=== PATIENT | female | born 1985 | race American Indian/Alaskan Native ===

== ENCOUNTER 2017-06-16 14:52 | Emergency (ER) | payer SELFPAY ==
[2017-06-16 15:49] VITALS: BP 111/66
[2017-06-16] MEDS ORDERED: TYLENOL PO ONE (21:06)
[2017-06-16] MEDS ORDERED: PROVENTIL IH ONE (21:06)
[2017-06-16] MEDS ORDERED: DELTASONE PO ONE (21:06)
--- NOTE | 2017-06-16 22:00 | Emergency Department Report ---
- General Chief Complaint: Upper Respiratory Infection Stated Complaint: BODYACHE, BREAST PAIN,CASEY Time Seen by Provider: 06/16/17 21:04 Source: patient Mode of arrival: Ambulatory Limitations: No Limitations - History of Present Illness Initial Comments: Patient is a 31-year-old female who presents for cough fever bodyaches dizziness with headache 3 weeks states family members sick with similar symptoms with influenza 2 weeks ago patient denies nausea vomiting tolerating by mouth intake states intermittent wheezing and shortness of breath at night, symptoms are exacerbated by activity symptoms are relieved by nothing nothing Complaint: fever, cough, sore throat, rhinorrhea, nasal congestion Onset/Timin -: week(s) Severity: moderate Severity scale (0 -10): 4 Quality: aching Consistency: intermittent Improves With: nothing Worsens With: activity Context: sick contacts Associated Symptoms: fever, chills, rhinorrhea, nasal congestion, sore throat, cough, shortness of breath, nausea, ear pain, other (wheezing ). denies: rash, confusion, right sweats, weight loss, epistaxis, hoarseness Treatments Prior to Arrival: none - Related Data Previous Rx's Medication Instructions Recorded Last Taken Type ALBUTEROL Inhaler [ProAir HFA 2 puff IH QID PRN #1 inhalation 06/17/17 Unknown Rx Inhaler] Azithromycin [Zithromax Z-KLEVER] 250 mg PO DAILY #6 tab 06/17/17 Unknown Rx Benzonatate [Tessalon Perles] 100 mg PO Q8HR PRN #30 capsule 06/17/17 Unknown Rx Ibuprofen 800 mg PO TID PRN #30 tablet 06/17/17 Unknown Rx predniSONE [Deltasone] 40 mg PO QDAY #10 tab 06/17/17 Unknown Rx Allergies Allergy/AdvReac Type Severity Reaction Status Date / Time No Known Allergies Allergy Unverified 06/16/17 15:49 ED Review of Systems ROS: Stated complaint: BODYACHE, BREAST PAIN,CASEY Other details as noted in HPI Constitutional: chills, fever Eyes: denies: eye pain, eye discharge, vision change ENT: ear pain, throat pain, congestion. denies: hearing loss, epistaxis Respiratory: cough, shortness of breath, wheezing Cardiovascular: denies: chest pain, palpitations, syncope, paroxysmal nocturnal dyspnea Endocrine: no symptoms reported Gastrointestinal: nausea. denies: abdominal pain, vomiting, diarrhea, constipation, hematemesis, melena, hematochezia Genitourinary: denies: urgency, dysuria, discharge Musculoskeletal: myalgia. denies: back pain, joint swelling, arthralgia Skin: denies: rash, lesions Neurological: denies: headache, weakness, numbness, paresthesias, confusion, abnormal gait, vertigo Psychiatric: denies: anxiety, depression Hematological/Lymphatic: denies: easy bleeding, easy bruising ED Past Medical Hx - Past Medical History Previous Medical History?: No - Surgical History Past Surgical History?: No - Social History Smoking Status: Never Smoker Substance Use Type: None - Medications Home Medications: Home Medications Medication Instructions Recorded Confirmed Last Taken Type ALBUTEROL Inhaler [ProAir HFA 2 puff IH QID PRN #1 inhalation 06/17/17 Unknown Rx Inhaler] Azithromycin [Zithromax Z-KLEVER] 250 mg PO DAILY #6 tab 06/17/17 Unknown Rx Benzonatate [Tessalon Perles] 100 mg PO Q8HR PRN #30 capsule 06/17/17 Unknown Rx Ibuprofen 800 mg PO TID PRN #30 tablet 06/17/17 Unknown Rx predniSONE [Deltasone] 40 mg PO QDAY #10 tab 06/17/17 Unknown Rx ED Physical Exam - General Limitations: No Limitations General appearance: alert, in no apparent distress - Head Head exam: Present: atraumatic, normocephalic - Eye Eye exam: Present: normal appearance, PERRL, EOMI Pupils: Present: normal accommodation - Expanded ENT Exam Expanded TM/Canal exam: Erythema: Right TM, Left TM Mouth exam: Present: tongue normal. Absent: trismus, tongue elevation Throat exam: Positive: tonsillar erythema. Negative: tonsillomegaly, tonsillar exudate, R peritonsillar mass, L peritonsillar mass - Neck Neck exam: Present: normal inspection, full ROM. Absent: tenderness, meningismus, lymphadenopathy, thyromegaly - Respiratory Respiratory exam: Present: normal lung sounds bilaterally, wheezes, chest wall tenderness. Absent: respiratory distress, rales, rhonchi, stridor, accessory muscle use, decreased breath sounds, prolonged expiratory - Cardiovascular Cardiovascular Exam: Present: regular rate, normal rhythm, normal heart sounds. Absent: systolic murmur, diastolic murmur, rubs, gallop - GI/Abdominal GI/Abdominal exam: Present: soft, normal bowel sounds. Absent: distended, tenderness, guarding, rebound, rigid, organomegaly, mass, bruit, pulsatile mass - Rectal Rectal exam: Present: deferred - Extremities Exam Extremities exam: Present: normal inspection, full ROM, normal capillary refill. Absent: tenderness, pedal edema, joint swelling, calf tenderness - Back Exam Back exam: Present: normal inspection, full ROM. Absent: tenderness, CVA tenderness (R), CVA tenderness (L), muscle spasm, paraspinal tenderness, vertebral tenderness, rash noted - Neurological Exam Neurological exam: Present: alert, oriented X3, CN II-XII intact, normal gait, reflexes normal - Psychiatric Psychiatric exam: Present: normal affect, normal mood - Skin Skin exam: Present: warm, dry, intact, normal color. Absent: rash ED Course Vital Signs 06/16/17 15:43 Temperature 98.4 F Pulse Rate 76 Respiratory 20 Rate Blood Pressure 111/66 O2 Sat by Pulse 99 Oximetry ED Medical Decision Making - Lab Data Result diagrams: 06/16/17 22:00 06/16/17 22:00 Laboratory Tests 06/16/17 06/16/17 06/16/17 22:00 22:00 23:40 WBC 8.9 RBC 4.19 Hgb 12.0 Hct 36.6 MCV 87 MCH 29 MCHC 33 RDW 14.6 Plt Count 164 Lymph % (Auto) 42.1 H Atkinson % (Auto) 5.1 Eos % (Auto) 1.9 Baso % (Auto) 0.4 Lymph # 3.7 Atkinson # 0.5 Eos # 0.2 Baso # 0.0 Seg Neutrophils % 50.5 Seg Neutrophils # 4.5 Sodium 137 Potassium 3.5 L Chloride 101.6 Carbon Dioxide 24 Anion Gap 15 BUN 12 Creatinine 0.7 Estimated GFR > 60 BUN/Creatinine Ratio 17 Glucose 127 H Calcium 8.0 L Total Bilirubin 0.20 AST 15 ALT 13 Alkaline Phosphatase 42 Total Protein 6.4 Albumin 3.4 L Albumin/Globulin Ratio 1.1 Urine Color Red Urine Turbidity Clear Urine pH 7.0 Ur Specific [place] 1.016 Urine Protein <15 mg/dl Urine Glucose (UA) Neg Urine Ketones Neg Urine Blood Neg Urine Nitrite Neg Urine Bilirubin Neg Urine Urobilinogen < 2.0 Ur Leukocyte Esterase Sm Urine WBC (Auto) 1.0 Urine RBC (Auto) 2.0 U Epithel Cells (Auto) 62.0 H Urine Mucus Few Urine HCG, Qual Negative - Radiology Data Radiology results: report reviewed, image reviewed normal chest xray no infiltrate no opacities - Medical Decision Making Patient is a 31-year-old female who presents for cough fever bodyaches dizziness with headache 3 weeks states family members sick with similar symptoms with influenza 2 weeks ago patient denies nausea vomiting tolerating by mouth intake states intermittent wheezing and shortness of breath at night, symptoms are exacerbated by activity symptoms are relieved by nothing nothing pt appears nontoxic cough non productive at this time, ent: TM erythema , pain with movement, nose: boggy bilat turbinate erythema edema clear post nasal drip , no sinus pain , pharynx: moderate erythema no exudate no lesions no swelling no stridor uvula midline lungs: mild exp wheezes bilat, plan: albuterol, prednisone, tylenol, CXR, cbc, ua, hcg, cmp, ekg noted as ordered from triage, nsr interp by ed attending, Reassessment: breathing improved , cxr: no infiltrates no opacities, cmp normal cbc: normal, ua: normal, hcg: negative, plan tx for uri bronchitis, follow up with pcp in 2-3 days pt verbalized agreement and understanding of same. Critical care attestation.: If time is entered above; I have spent that time in minutes in the direct care of this critically ill patient, excluding procedure time. ED Disposition Clinical Impression: Bronchitis URI (upper respiratory infection) Qualifiers: URI type: unspecified viral URI Qualified Code(s): J06.9 - Acute upper respiratory infection, unspecified Disposition: DC TO HOME OR SELFCARE Is pt being admited?: No Does the pt Need Aspirin: No Condition: Good Instructions: Chronic Bronchitis (ED) Prescriptions: ALBUTEROL Inhaler [ProAir HFA Inhaler] 2 puff IH QID PRN #1 inhalation PRN Reason: Shortness Of Breath Azithromycin [Zithromax Z-KLEVER] 250 mg PO DAILY #6 tab Benzonatate [Tessalon Perles] 100 mg PO Q8HR PRN #30 capsule PRN Reason: Cough Ibuprofen 800 mg PO TID PRN #30 tablet PRN Reason: pain fever predniSONE [Deltasone] 40 mg PO QDAY #10 tab Forms: Work/School Release Form(ED) Time of Disposition: 01:13
[2017-06-16 22:21] LABS: Basophils % (Auto) 0.4 % (0.0-1.8); Eosinophils # (Auto) 0.2 K/mm3 (0.0-0.4); Eosinophils % (Auto) 1.9 % (0.0-4.3); Hematocrit 36.6 % (30.3-42.9); Lymphocytes # (Auto) 3.7 K/mm3 (1.2-5.4); Lymphocytes % (Auto) 42.1 % (13.4-35.0); Mean Corpuscular HGB Conc 33 % (30-34); Mean Corpuscular Hemoglobin 29 pg (28-32); Mean Corpuscular Volume 87 fl (79-97); Monocytes # (Auto) 0.5 K/mm3 (0.0-0.8); Monocytes % (Auto) 5.1 % (0.0-7.3); Platelet Count 164 K/mm3 (140-440); Red Blood Count 4.19 M/mm3 (3.65-5.03); Red Cell Distribution Width 14.6 % (13.2-15.2)
[2017-06-16 22:39] LABS: Alanine Aminotransferase 13 units/L (7-56); Albumin 3.4 g/dL (3.9-5); BUN/Creatinine Ratio 17; Blood Urea Nitrogen 12 mg/dL (7-17); Hemolysis Index 0
[2017-06-17 00:05] LABS: Bilirubin,Urine NEG (Negative); Blood,Urine NEG (Negative); Color,Urine Red (Yellow); Mucus,Urine FEW /HPF; Nitrite,Urine NEG (Negative); Protein,Urine <15 mg/dL mg/dL (Negative); Urobilinogen,Urine < 2.0 mg/dL (<2.0)
[2017-06-17 00:06] LABS: HCG Qualitative,Urine Negative (Negative)
--- NOTE | 2017-06-17 00:42 | XRay Report ---
FINAL REPORT EXAM: XR CHEST ROUTINE 2V HISTORY: cough x 3 weeks fever TECHNIQUE: 2 views of the chest. PRIORS: None. FINDINGS: The cardiomediastinal silhouette appears normal. The lungs are clear. The bones and soft tissues are unremarkable. IMPRESSION: No evidence of acute cardiopulmonary disease
== END 2017-06-17 01:15 | disposition home or self-care (01) ==
LOC: ED 14:52
DX: J40 Bronchitis, not specified as acute or chronic (principal); J06.9 Acute upper respiratory infection, unspecified; B97.89 Other viral agents as the cause of diseases classified elsewhere
CPT/HCPCS: 36415; 71046; 80053; 81001; 81025; 85025; 87400; 93005; 93010; 94640; 99284; J7512